=== PATIENT | female | born 1960 | race Caucasian/White ===

== ENCOUNTER 2019-06-15 17:05 | Emergency (ER) | payer MEDICARE ==
[~2019-06-15] VITALS: Ht 170.2 cm; Wt 151.6 kg
[~2019-06-15 17:05] MED LIST: ASPI-630 PO; ATOR40TA PO; CLOP75TA57 PO; CYCL-331 PO; DOCU100C28 PO; DULO60CA6 PO; FURO-68 PO; HYDR-2155 PO; INSU100I27 SQ; INSU100I9 SQ; LIRA0.6P2 SQ; LISI-379 PO; LORA10CA PO; METF1000 PO; MULT-196 PO; NITR0.4T24 PO; PANT20TA58 PO; PROAIR RESPICL90 MCG INH; [UNRECOGNIZED DRUG - CODE] PO; [UNRECOGNIZED DRUG - CODE] PO
[2019-06-15 17:18] VITALS: BP 191/97
[2019-06-15 17:27] LABS: BASO # 0.1 x10^3/uL (0.0-0.2); BASO % 1 % (0-3); EOS # 0.1 x10^3/uL (0.0-0.7); EOS % 1 % (0-3); HEMATOCRIT 41.2 % (36.0-47.0); HEMOGLOBIN 13.8 g/dL (12.0-15.5); LYMPH # 1.6 x10^3/uL (1.0-4.8); LYMPH % 15 % (24-48); MEAN CORPUSCULAR HEMOGLOBIN 30 pg (25-35); MEAN CORPUSCULAR HGB CONC 34 g/dL (31-37); MEAN CORPUSCULAR VOLUME 91 fL (79-100); MONO # 0.9 x10^3/uL (0.0-1.1); MONO % 8 % (0-9); NEUT % 75 % (31-73); PLATELET COUNT 345 x10^3/uL (140-400); RED BLOOD COUNT 4.54 x10^6/uL (3.50-5.40); WHITE BLOOD COUNT 10.6 x10^3/uL (4.0-11.0)
--- NOTE | 2019-06-15 17:38 | PHYS DOC ---
Past History Past Medical History: CAD, COPD, GERD, High Cholesterol, Heart Disease, Hypertension, OH, UTI Past Surgical History: Other Additional Past Surgical Histo: stents Alcohol Use: None Drug Use: None Adult General Chief Complaint Chief Complaint: BLOOD SUGAR PROBLEM HPI HPI Patient is a 58-year-old female who presents with report of hypoglycemia. Patient indicates that her fianc had given her her insulin and accidentally had given her 60 units of her short acting insulin instead of the long-acting insulin. She usually gets only 10 units of short-acting insulin. Patient denies any chest pain or shortness of breath. She indicates that she is feeling better at this time.[] Review of Systems Review of Systems Constitutional: Denies fever or chills [] Respiratory: Denies cough or shortness of breath [] Cardiovascular: No additional information not addressed in HPI [] GI: Denies abdominal pain, nausea, vomiting or diarrhea [] Integument: Denies rash or skin lesions [] Neurologic: Denies headache, focal weakness or sensory changes [] All other systems were reviewed and found to be within normal limits, except as documented in this note. Allergies Allergies Allergies Coded Allergies Type Severity Reaction Last Updated Verified fluconazole Allergy Intermediate 08/26/15 Yes Physical Exam Physical Exam Constitutional: Well developed, well nourished, no acute distress, non-toxic appearance. [] HENT: Normocephalic, atraumatic, bilateral external ears normal, oropharynx moist, no oral exudates, nose normal. [] Eyes: PERRLA, EOMI, conjunctiva normal, no discharge. [] Neck: Normal range of motion, no tenderness, supple. [] Cardiovascular: Regular rate and rhythm[] Lungs & Thorax: Bilateral breath sounds clear to auscultation [] Abdomen: Bowel sounds normal, soft, no tenderness. [] Skin: Warm, dry, no erythema, no rash. [] Extremities: No tenderness, no cyanosis, no clubbing, ROM intact. [] Neurologic: Alert and oriented X 3, no focal deficits noted. [] Current Patient Data Vital Signs Vital Signs Date Time Temp Pulse Resp B/P (MAP) Pulse Ox O2 Delivery O2 Flow Rate FiO2 06/15/19 17:18 98.2 94 18 191/97 (128) 100 Room Air Lab Results Laboratory Tests Test 06/15/19 17:08 White Blood Count 10.6 x10^3/uL (4.0-11.0) Red Blood Count 4.54 x10^6/uL (3.50-5.40) Hemoglobin 13.8 g/dL (12.0-15.5) Hematocrit 41.2 % (36.0-47.0) Mean Corpuscular Volume 91 fL (79-100) Mean Corpuscular Hemoglobin 30 pg (25-35) Mean Corpuscular Hemoglobin Concent 34 g/dL (31-37) Red Cell Distribution Width 13.0 % (11.5-14.5) Platelet Count 345 x10^3/uL (140-400) Neutrophils (%) (Auto) 75 % (31-73) H Lymphocytes (%) (Auto) 15 % (24-48) L Monocytes (%) (Auto) 8 % (0-9) Eosinophils (%) (Auto) 1 % (0-3) Basophils (%) (Auto) 1 % (0-3) Neutrophils # (Auto) 8.0 x10^3uL (1.8-7.7) H Lymphocytes # (Auto) 1.6 x10^3/uL (1.0-4.8) Monocytes # (Auto) 0.9 x10^3/uL (0.0-1.1) Eosinophils # (Auto) 0.1 x10^3/uL (0.0-0.7) Basophils # (Auto) 0.1 x10^3/uL (0.0-0.2) EKG EKG [] Radiology/Procedures Radiology/Procedures [] Course & Med Decision Making Course & Med Decision Making Pertinent Labs and Imaging studies reviewed. (See chart for details) [] Dragon Disclaimer Dragon Disclaimer This electronic medical record was generated, in whole or in part, using a voice recognition dictation system. Departure Departure: Impression: Primary Impression: Hypoglycemia Disposition: 01 HOME, SELF-CARE Condition: STABLE Referrals: LOLY DAI (PCP) Patient Instructions: Hypoglycemia (Low Blood Sugar) SHERITA ÁLVAREZ Jr. DO Jun 15, 2019 17:38
[2019-06-15 17:48] LABS: CALCIUM 9.4 mg/dL (8.5-10.1); CREATININE 1.2 mg/dL (0.6-1.0); GFR 46.1; POTASSIUM 3.6 mmol/L (3.5-5.1)
[2019-06-15 17:53] LABS: ALBUMIN 3.1 g/dL (3.4-5.0); ALBUMIN/GLOBULIN RATIO 0.8 (1.0-1.7); TOTAL BILIRUBIN 0.1 mg/dL (0.2-1.0)
== END 2019-06-15 18:33 | disposition home or self-care (01) ==
LOC: ER 17:05
DX: E16.2 Hypoglycemia, unspecified (principal); I25.10 Atherosclerotic heart disease of native coronary artery without angina pectoris; J44.9 Chronic obstructive pulmonary disease, unspecified; K21.9 Gastro-esophageal reflux disease without esophagitis; E78.00 Pure hypercholesterolemia, unspecified; I11.9 Hypertensive heart disease without heart failure; I25.2 Old myocardial infarction; Z87.440 Personal history of urinary (tract) infections; Z88.8 Allergy status to other drugs, medicaments and biological substances
CPT/HCPCS: 36415; 80053; 82947; 85025; 85610; 99283

== ENCOUNTER 2019-12-11 14:49 | Observation (INO) | payer MEDICARE ==
[~2019-12-11] VITALS: Ht 170.2 cm; Wt 147.4 kg
--- NOTE | 2019-12-11 15:15 | RAD ---
Study: CR CHEST PA LATERAL Indication: Chest pain. Comparison: None. Findings: The cardiomediastinal silhouette is within normal limits for size. Atherosclerotic calcifications at the aortic arch. Unremarkable kristal. No pneumothorax, lobar consolidation or layering effusion. Possible hydroxyapatite deposition adjacent to the left greater tuberosity. Cholecystectomy clips. Impression: No acute radiographic abnormality of the chest. Electronically signed by: RAYA LOYA MD (12/11/2019 3:12 PM) [id number]
[2019-12-11 15:39] LABS: CALCIUM 9.2 mg/dL (8.5-10.1); CREATININE 1.1 mg/dL (0.6-1.0); GFR 50.8; POTASSIUM 3.9 mmol/L (3.5-5.1)
[2019-12-11 15:44] LABS: BASO % 1 % (0-3); EOS # 0.2 x10^3/uL (0.0-0.7); EOS % 4 % (0-3); HEMATOCRIT 38.5 % (36.0-47.0); HEMOGLOBIN 12.9 g/dL (12.0-15.5); LYMPH # 2.1 x10^3/uL (1.0-4.8); LYMPH % 31 % (24-48); MEAN CORPUSCULAR HEMOGLOBIN 31 pg (25-35); MEAN CORPUSCULAR HGB CONC 34 g/dL (31-37); MEAN CORPUSCULAR VOLUME 92 fL (79-100); MONO # 0.5 x10^3/uL (0.0-1.1); MONO % 8 % (0-9); NEUT # 3.8 x10^3uL (1.8-7.7); NEUT % 57 % (31-73); PLATELET COUNT 306 x10^3/uL (140-400); RED CELL DISTRIBUTION WIDTH 13.3 % (11.5-14.5); WHITE BLOOD COUNT 6.8 x10^3/uL (4.0-11.0)
--- NOTE | 2019-12-11 18:10 | PHYS DOC ---
Past History Past Medical History: Depression, Diabetes, Heart Disease, Hypertension Past Surgical History: Cholecystectomy, Hysterectomy Additional Past Surgical Histo: stents Alcohol Use: None Drug Use: None Adult General Chief Complaint Chief Complaint: CHEST PAIN HPI HPI Patient is a 59-year-old female who presents the emergency room complaining of substernal chest pain that radiates into the back with associated nausea, sweating, shortness of breath. She states it feels exactly like her last heart attack. She states it feels like a pressure squeezing like pain. It has been constant since it started. She denies any URI symptoms, fever, abdominal pain. Review of Systems Review of Systems General: Denies fever, chills, sweats, fatigue Eyes: Denies drainage, blurred vision, eye redness HENT: Denies rhinorrhea, sore throat, earache Respiratory: Denies cough, wheezing reports shortness of breath Cardiac: Denies edema, palpitations.reports chest pain GI: Denies abdominal pain, Nausea, vomiting MSK: Denies back pain, neck pain Skin: Denies rash, jaundice Neuro: Denies headache, dizziness Psychiatric: Denies SI/HI Allergies Allergies Allergies Coded Allergies Type Severity Reaction Last Updated Verified fluconazole Allergy Intermediate 12/11/19 Yes Physical Exam Physical Exam General: Awake, alert, NAD. Well Nourished, well hydrated. Cooperative HEENT: Atraumatic, EOMI, PERRL, airway patent, moist oral mucosa Neck: Supple, trachea midline Respiratory: CTA bilaterally, normal effort, no wheezing/crackles CV: RRR, no murmur, cap refill <2 GI: Soft, nondistended, nontender, no masses MSK: No obvious deformities Skin: Warm, dry, intact Neuro: A&O x3, speech NL, sensory and motor grossly intact, no focal deficits Psych: Normal affect, normal mood, not suicidal or homicidal Current Patient Data Vital Signs Vital Signs Date Time Temp Pulse Resp B/P (MAP) Pulse Ox O2 Delivery O2 Flow Rate FiO2 12/11/19 15:26 87 14 137/81 (99) 93 Room Air 12/11/19 14:52 98.4 Lab Results Laboratory Tests Test 12/11/19 15:15 White Blood Count 6.8 x10^3/uL (4.0-11.0) Red Blood Count 4.20 x10^6/uL (3.50-5.40) Hemoglobin 12.9 g/dL (12.0-15.5) Hematocrit 38.5 % (36.0-47.0) Mean Corpuscular Volume 92 fL (79-100) Mean Corpuscular Hemoglobin 31 pg (25-35) Mean Corpuscular Hemoglobin Concent 34 g/dL (31-37) Red Cell Distribution Width 13.3 % (11.5-14.5) Platelet Count 306 x10^3/uL (140-400) Neutrophils (%) (Auto) 57 % (31-73) Lymphocytes (%) (Auto) 31 % (24-48) Monocytes (%) (Auto) 8 % (0-9) Eosinophils (%) (Auto) 4 % (0-3) H Basophils (%) (Auto) 1 % (0-3) Neutrophils # (Auto) 3.8 x10^3uL (1.8-7.7) Lymphocytes # (Auto) 2.1 x10^3/uL (1.0-4.8) Monocytes # (Auto) 0.5 x10^3/uL (0.0-1.1) Eosinophils # (Auto) 0.2 x10^3/uL (0.0-0.7) Basophils # (Auto) 0.0 x10^3/uL (0.0-0.2) Sodium Level 139 mmol/L (136-145) Potassium Level 3.9 mmol/L (3.5-5.1) Chloride Level 105 mmol/L (98-107) Carbon Dioxide Level 29 mmol/L (21-32) Anion Gap 5 (6-14) L Blood Urea Nitrogen 10 mg/dL (7-20) Creatinine 1.1 mg/dL (0.6-1.0) H Estimated GFR (Cockcroft-Gault) 50.8 Glucose Level 124 mg/dL (70-99) H Calcium Level 9.2 mg/dL (8.5-10.1) Troponin I Quantitative < 0.017 ng/mL (0-0.055) PG-Qci-N-Type Natriuretic Peptide 109 pg/mL (0-124) EKG EKG [] Radiology/Procedures Radiology/Procedures [] Course & Med Decision Making Course & Med Decision Making Pertinent Labs and Imaging studies reviewed. (See chart for details) Patient is a 59 year-old female who presents to the Emergency Room complaining of chest pain with multiple associated symptoms. History is significant for coronary artery disease with last stent a year ago. At this time, given patient's risk factors and story there is concern for possible cardiac pathology. EKG was ordered and shows chronic changes. At this time there is no signs of STEMI, pericarditis, or unstable arrthymia on EKG. Patient has received aspirin today. CBC, BMP, troponin, CXR were ordered to evaluate for causes of chest pain including ACS, anemia, electrolyte abnormalities that can lead to arrhythmias, PTX, pneumonia, pneumomediastinum. Patient does not have any abdominal tenderness that would suggest pancreaititis or cholecystitis and does not need an abdominal work up at this time. Patient's HEART score is 6 placing the patient at moderate risk. Patient will be admitted for cardiac evaluation. Dragon Disclaimer Dragon Disclaimer This electronic medical record was generated, in whole or in part, using a voice recognition dictation system. Departure Departure: Impression: Primary Impression: Chest pain Disposition: ADMITTED INPATIENT Condition: STABLE Referrals: LOLY DAI (PCP) Justification of Admission: Justification of Admission: Justification of Admission Dx: Yes Angina: New-Onset GRAHAM IRELAND MD Dec 11, 2019 18:10
[2019-12-11 19:48] VITALS: BP 162/88
[2019-12-11] MEDS ORDERED: ARMO150T4 PO (21:22)
[2019-12-11] MEDS ORDERED: AMLO10TA8 PO (21:22)
[2019-12-11] MEDS ORDERED: POTA20TA4 PO (21:22)
[2019-12-11] MEDS ORDERED: LOSA50TA86 PO (21:22)
[2019-12-11] MEDS ORDERED: FLUT1DIS3 IH (21:22)
[2019-12-11] MEDS ORDERED: DIPH25TA26 PO (21:22)
[2019-12-11] MEDS ORDERED: NORT25CA3 PO (21:22)
[2019-12-11] MEDS ORDERED: INSU100I17 SQ (21:22)
[2019-12-11] MEDS ORDERED: RIBO100T3 PO (21:22)
[2019-12-11] MEDS ORDERED: SENN1TAB99 PO (21:22)
[2019-12-11] MEDS ORDERED: LINA5TAB4 PO (21:22)
[2019-12-11] MEDS ORDERED: INSU200I4 SQ (21:22)
[2019-12-11] MEDS ORDERED: WHEA1POW5 PO (21:22)
[2019-12-11] MEDS ORDERED: PROC10TA57 PO (21:22)
[2019-12-11] MEDS ORDERED: AMOX1TAB11 PO (21:22)
--- NOTE | 2019-12-11 22:46 | NUR ---
The patient, DAISY SANCHEZ, 59 y/o, F admitted by LOLY STRONG MD, was given written information regarding hospital policies, unit procedures and contact persons. Valuables were checked and noted. PT admitted with unremitting chest pain that started today. PT with no chest pain at time of admission to floor. Reviewed with PT her PMH, PSH, SH, FH and medications. Telephoned Dr. Strong for continuation of medications. Per Dr. Strong, Dr. Reynoso will review in morning rounds with PT. Spoke with boyfriend on PTs phone at time of assessment. Conveyed lab studies thus far negative.
[2019-12-11 22:47] VITALS: BP 170/91
[2019-12-12 06:20] VITALS: BP 162/84
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
[2019-12-12] MEDS ORDERED: metFORMIN 500 MG TABLET PO SCH (09:00)
[2019-12-12] MEDS: INSULIN GLARGINE SYRINGE. SQ SCH (09:00)
[2019-12-12] MEDS: LINAGLIPTIN 5 MG TABLET PO SCH (09:00)
[2019-12-12] MEDS ORDERED: FUROSEMIDE 40 MG TABLET PO PRN (09:15)
--- NOTE | 2019-12-12 09:15 | HP ---
ADMIT DATE: 12/11/2019 ATTENDING PHYSICIAN: Dr. Briseno CHIEF COMPLAINT: Chest pain. HISTORY OF PRESENT ILLNESS: The patient is a 59-year-old female admitted through the ED with substernal chest pain, new onset, radiating to her back with associated nausea, sweating and shortness of breath. She states it felt exactly like her last heart attack. She has a history of coronary artery disease. She had 2 cardiac catheterizations at [facility] in 2019. Each time, she had angioplasty and placement of stents, total of 3 altogether. There is no recent COVID exposure, fevers or chills. She was admitted then for further treatment and evaluation. Initial EKG is nondiagnostic and the first set of enzymes was negative for coronary ischemia. PAST MEDICAL HISTORY: Significant for major depression; morbid obesity; type 2 diabetes, insulin-dependent; coronary artery disease with previous stents; and hypertension. PAST SURGICAL HISTORY: Includes tonsillectomy, cholecystectomy, hysterectomy. SOCIAL HISTORY: She is a nonsmoker, nondrinker. She does not use any wufg-vjr-dcdgzja nonsteroidals and she drinks minimal amount of caffeine. ALLERGIES: FLUCONAZOLE. CURRENT MEDICATIONS: Include the following: She takes insulin regular and Lantus, albuterol, amlodipine, Augmentin, Nuvigil, aspirin, Lipitor, Plavix, Flexeril p.r.n., Cymbalta, fluticasone, Lasix, losartan, Tradjenta, metformin, nitroglycerin, Pamelor, Protonix, potassium, riboflavin, and senna. REVIEW OF SYSTEMS: Significant for the localized chest pain. No recent travel, no exertional symptoms. She denied any palpitations. All other systems reviewed and turned to be negative. PHYSICAL EXAMINATION: GENERAL: When I saw her, this is a pleasant, alert, middle-aged female. INITIAL VITAL SIGNS: Showed a blood pressure 162/84, pulse is 80 and regular, temperature 97.8 degrees Fahrenheit, oxygen saturation 91% on room air. HEENT: Head is without trauma. Pupils are reactive. Sclerae nonicteric. Oropharynx is clear. NECK: Supple, no bruits identified. LUNGS: Good breath sounds. CARDIOVASCULAR: Showed regular heart tones. No gallops. Peripheral pulses are palpable and full. ABDOMEN: Obese, protuberant. No organomegaly. Bowel sounds were hypoactive. EXTREMITIES: Showed no cyanosis. NEUROLOGIC: Focally intact. No deficits. SKIN: Warm and dry. ASSESSMENT: 1. A 59-year-old female with chest pain at rest, whether this is cardiac remains to be seen. She has a known history of coronary artery disease with previous catheterization and stents. 2. Type 2 diabetes mellitus. 3. Hypertension, labile. 4. Morbid obesity. 5. Generalized debilitation. PLAN: 1. Observation status. 2. Serial cardiac enzymes. 3. Cardiology evaluation in the morning. 4. Resume home meds. ROBBIE BRISENO MD DR: MATTHEW/priya JOB#: [id number] / [id number] LOLY Mullen MD
[2019-12-12] MEDS: ATORVASTATIN CALCIUM 20 MG TABLET PO SCH (09:48)
[2019-12-12] MEDS: PANTOPRAZOLE 40 MG TABLET. PO SCH ×2 (09:48→21:25)
[2019-12-12] MEDS: INSULIN LISPRO 300 UNITS/3 ML VIAL. SQ SCH ×3 (09:54→17:08)
[2019-12-12] MEDS ORDERED: PROCHLORPERAZINE 5 MG TABLET. PO PRN (10:45)
[2019-12-12 10:54] VITALS: BP 137/72
[2019-12-12] MEDS: NORTRIPTYLINE 25 MG CAPSULE PO SCH (11:00)
[2019-12-12] MEDS ORDERED: INSULIN LISPRO 300 UNITS/3 ML VIAL. SQ ONE (11:45)
[2019-12-12] MEDS: ALBUTEROL SULFATE 2.5 MG/3 ML NEBU. NEB SCH ×3 (11:45→21:47)
[2019-12-12] MEDS ORDERED: MORPHINE SULFATE 4 MG/ML DISP.SYRIN. IV PRN (12:00)
[2019-12-12] MEDS: POTASSIUM CHLORIDE 20 MEQ TABLET.ER. PO SCH (12:06)
[2019-12-12] MEDS: SENNOSIDES/DOCUSATE 8.6/50MG TABLET. PO SCH ×2 (12:06→21:25)
[2019-12-12] MEDS: DULoxetine HCL 60 MG CAPSULE.DR PO SCH (12:06)
--- NOTE | 2019-12-12 12:06 | EKG ---
[address] [address] Test Date: 2019-12-12 Test Time: 12:03:06 Pat Name: DAISY SANCHEZ Department: Room: 121 A Gender: F Tax Services Intern: : 1960 Requested By: ROBBIE BRISENO Order Number: [id number] Reading MD: Measurements Intervals [place] Rate: 99 P: 28 TX: 156 QRS: -14 QRSD: 76 T: 43 QT: 328 QTc: 426 Interpretive Statements SINUS RHYTHM LEFTWARD AXIS QRS(T) CONTOUR ABNORMALITY CONSISTENT WITH ANTEROSEPTAL INFARCT AGE UNDETERMINED ABNORMAL ECG RI6.01 No previous ECG available for comparison
[2019-12-12 15:02] VITALS: BP 141/82
[2019-12-12] MEDS: METOPROLOL SUCC 24HR ER 25 MG TAB.ER.24H. PO SCH (17:10)
[2019-12-12 18:28] VITALS: BP 157/66
[2019-12-12] MEDS ORDERED: NON FORMULARY ITEM (Fluticasone/Salmeterol (Advair 250-50 Diskus) 1 PUFF) IH SCH (21:00)
[2019-12-12] MEDS: AMOXICILLIN/K CLAV 875/125MG TABLET. PO SCH (21:25)
[2019-12-12] MEDS: BUDESONIDE 0.5 MG/2 ML NEBU NEB SCH (21:47)
[2019-12-12 23:16] VITALS: BP 164/92
[2019-12-13 05:18] VITALS: BP 193/84
[2019-12-13] MEDS: ALBUTEROL SULFATE 2.5 MG/3 ML NEBU. NEB SCH (05:24)
--- NOTE | 2019-12-13 07:03 | EKG ---
[address] [address] Test Date: 2019-12-11 Test Time: 14:51:55 Pat Name: DAISY SANCHEZ Department: Room: Gender: F Drugless Physician: ROGERIO : 1960 Requested By: GRAHAM IRELAND Order Number: [id number] Reading MD: Measurements Intervals [place] Rate: 92 P: 25 OK: 146 QRS: -15 QRSD: 94 T: 67 QT: 360 QTc: 450 Interpretive Statements SINUS RHYTHM ATRIAL PREMATURE COMPLEX(ES) LEFTWARD AXIS OTHERWISE NORMAL ECG RI6.02 No previous ECG available for comparison
[2019-12-13] MEDS: INSULIN LISPRO 300 UNITS/3 ML VIAL. SQ SCH ×2 (08:00→12:00)
[2019-12-13] MEDS: BUDESONIDE 0.5 MG/2 ML NEBU NEB SCH (08:00)
[2019-12-13] MEDS: INSULIN GLARGINE SYRINGE. SQ SCH (08:00)
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
[2019-12-13] MEDS: AMOXICILLIN/K CLAV 875/125MG TABLET. PO SCH (08:28)
[2019-12-13] MEDS: ATORVASTATIN CALCIUM 20 MG TABLET PO SCH (08:32)
[2019-12-13] MEDS: SENNOSIDES/DOCUSATE 8.6/50MG TABLET. PO SCH (08:32)
[2019-12-13] MEDS: METOPROLOL SUCC 24HR ER 25 MG TAB.ER.24H. PO SCH (08:32)
[2019-12-13] MEDS: POTASSIUM CHLORIDE 20 MEQ TABLET.ER. PO SCH (08:33)
[2019-12-13] MEDS: PANTOPRAZOLE 40 MG TABLET. PO SCH (08:33)
[2019-12-13] MEDS: DULoxetine HCL 60 MG CAPSULE.DR PO SCH (08:33)
[2019-12-13] MEDS: LINAGLIPTIN 5 MG TABLET PO SCH (08:35)
[2019-12-13] MEDS: NORTRIPTYLINE 25 MG CAPSULE PO SCH (08:35)
[2019-12-13] MEDS ORDERED: NON FORMULARY ITEM (Armodafinil (Nuvigil) 1 TAB) PO SCH (09:00)
[2019-12-13] MEDS ORDERED: LOSARTAN 50 MG TABLET. PO SCH (09:00)
[2019-12-13] MEDS ORDERED: ASPIRIN CHEWABLE 81 MG TABLET. PO SCH (09:00)
[2019-12-13] MEDS ORDERED: amLODIPine BESYLATE 10 MG TABLET PO SCH (09:00)
[2019-12-13] MEDS ORDERED: CLOPIDOGREL BISULFATE 75 MG TABLET PO SCH (09:00)
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
[2019-12-13 11:00] VITALS: BP 162/80
--- NOTE | 2019-12-13 13:23 | NUR ---
Patient was discharged to home. Discharge paperwork was reviewed. Patient left the unit via wheelchair with all of her belongings escorted by this RN. transported patient home via private vehicle.
[2019-12-13 19:16] LABS: THYROID STIM HORMONE (TSH) 2.455 uIU/mL (0.358-3.740)
== END 2019-12-13 11:55 | disposition home or self-care (01) ==
LOC: ER 14:49 → INTOOBSV 17:50 → 1 SOUTH 17:50 → ER 18:35
PROVIDERS: ADMIT Internal Medicine; ATTEND Internal Medicine
DX: I13.0 Hypertensive heart and chronic kidney disease with heart failure and stage 1 through stage 4 chronic kidney disease, or unspecified chronic kidney disease (principal); I50.32 Chronic diastolic (congestive) heart failure; N18.9 Chronic kidney disease, unspecified; E11.22 Type 2 diabetes mellitus with diabetic chronic kidney disease; I25.10 Atherosclerotic heart disease of native coronary artery without angina pectoris; J44.9 Chronic obstructive pulmonary disease, unspecified; G47.33 Obstructive sleep apnea (adult) (pediatric); E78.5 Hyperlipidemia, unspecified; E03.9 Hypothyroidism, unspecified; F32.9 Major depressive disorder, single episode, unspecified; E66.01 Morbid (severe) obesity due to excess calories; R53.81 Other malaise; R07.2 Precordial pain; Z79.4 Long term (current) use of insulin; Z90.710 Acquired absence of both cervix and uterus; Z79.02 Long term (current) use of antithrombotics/antiplatelets; Z90.49 Acquired absence of other specified parts of digestive tract; Z79.82 Long term (current) use of aspirin; Z87.11 Personal history of peptic ulcer disease; Z79.01 Long term (current) use of anticoagulants; Z95.5 Presence of coronary angioplasty implant and graft; Z68.43 Body mass index [BMI] 50.0-59.9, adult
CPT/HCPCS: 36415; 71046; 80048; 80061; 82947; 83880; 84443; 84484; 85025; 93005; 94640; 94760; 96374; 97162; 97165; 99285; G0378; J1815; J2270; J7613; G0379

== ENCOUNTER 2020-06-28 19:26 | Emergency (ER) | payer MEDICARE ==
[~2020-06-28] VITALS: Ht 170.2 cm; Wt 137.2 kg
[~2020-06-28 19:26] MED LIST changes: +AMLO-187 PO; +AMOX1TAB11 PO; +ARMO150T4 PO; +DIPH25TA26 PO; +FLUT1DIS3 IH; +INSU100I17 SQ; +INSU200I4 SQ; +LINA5TAB4 PO; +LOSA50TA86 PO; +NORT25CA3 PO; +POTA20TA4 PO; +PROC10TA57 PO; +RIBO100T3 PO; +SENN1TAB99 PO; +WHEA1POW5 PO
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
[2020-06-28] MEDS ORDERED: ONDANSETRON PF 4 MG/2 ML VIAL. ONE (20:10)
[2020-06-28] MEDS ORDERED: FAMOTIDINE 20 MG/2 ML VIAL ONE (20:10)
[2020-06-28] MEDS ORDERED: KETOROLAC 30 MG/ML VIAL. ONE (20:10)
[2020-06-28] MEDS ORDERED: cloNIDine TTS-2 1 PATCH PATCH TD ONE ×2 (20:10→20:15)
[2020-06-28] MEDS ORDERED: KETOROLAC 30 MG/ML VIAL. IVP ONE (20:15)
[2020-06-28] MEDS ORDERED: ONDANSETRON PF 4 MG/2 ML VIAL. IVP ONE (20:15)
[2020-06-28] MEDS ORDERED: IV RINGERS SOLUTION,LACTATED 1,000 ML IV SCH (20:15)
[2020-06-28] MEDS ORDERED: FAMOTIDINE 20 MG/2 ML VIAL IVP ONE (20:15)
[2020-06-28 20:20] LABS: BASO % 1 % (0-3); EOS # 0.1 x10^3/uL (0.0-0.7); EOS % 1 % (0-3); HEMATOCRIT 39.1 % (36.0-47.0); HEMOGLOBIN 13.1 g/dL (12.0-15.5); LYMPH # 2.6 x10^3/uL (1.0-4.8); LYMPH % 27 % (24-48); MEAN CORPUSCULAR HEMOGLOBIN 30 pg (25-35); MEAN CORPUSCULAR HGB CONC 34 g/dL (31-37); MEAN CORPUSCULAR VOLUME 89 fL (79-100); MONO # 0.8 x10^3/uL (0.0-1.1); MONO % 8 % (0-9); NEUT # 6.2 x10^3uL (1.8-7.7); NEUT % 64 % (31-73); PLATELET COUNT 341 x10^3/uL (140-400); RED BLOOD COUNT 4.42 x10^6/uL (3.50-5.40); RED CELL DISTRIBUTION WIDTH 13.6 % (11.5-14.5); WHITE BLOOD COUNT 9.7 x10^3/uL (4.0-11.0)
[2020-06-28 20:22] LABS: CALCIUM 9.9 mg/dL (8.5-10.1); CREATININE 1.3 mg/dL (0.6-1.0); GFR 41.9; POTASSIUM 3.9 mmol/L (3.5-5.1)
[2020-06-28 20:26] LABS: BILIRUBIN,URINE NEG (NEG); CLARITY,URINE TURBID; COLOR,URINE YELLOW; GLUCOSE,URINE >=1000 mg/dL (NEG)
[2020-06-28 20:27] LABS: BACTERIA,URINE MANY /HPF (0-FEW); DIRECT BILIRUBIN 0.1 mg/dL (0.0-0.2); NITRITE,URINE POS (NEG); RBC,URINE >40 /HPF (0-2); SQUAMOUS EPITHELIAL CELL,UR OCC /LPF; TOTAL BILIRUBIN 0.2 mg/dL (0.2-1.0); TOTAL PROTEIN 6.7 g/dL (6.4-8.2); UROBILINOGEN,URINE 0.2 mg/dL (0.2 mg/dL); WBC,URINE >40 /HPF (0-4); YEAST,URINE PRESENT /HPF
[2020-06-28 20:32] LABS: BARBITURATES NEG (NEG); BENZODIAZEPINES NEG (NEG); CANNABINOIDS NEG (NEG); COCAINE NEG (NEG); METHADONE NEG (NEG); OPIATES NEG (NEG); PHENCYCLIDINE NEG (NEG)
[2020-06-28 20:34] LABS: AMPHETAMINE/METHAMPHETAMINE NEG (NEG)
[2020-06-28 20:55] LABS: INFLUENZA A PATIENT NEGATIVE (NEGATIVE); INFLUENZA B PATIENT NEGATIVE (NEGATIVE)
[2020-06-28 21:32] VITALS: BP 175/82
[2020-06-28] MEDS ORDERED: cefTRIAXone SODIUM 1 GM VIAL ONE (21:45)
[2020-06-28] MEDS ORDERED: IV NORMAL SALINE 50ML 50 ML ONE (21:45)
--- NOTE | 2020-06-28 22:32 | RAD ---
Acute Abdominal Series: 06/28/2020 8:22 PM Reason for study: Nausea Comparison studies: None. Technique: Frontal view of the chest was obtained along with supine and upright views of the abdomen. Findings: Nonobstructive bowel gas pattern. No air fluid levels or free air. Close cystectomy changes are prese nt. IUD is present. The lungs are clear without acute consolidative opacity. No pleural effusion or pneumothorax. The car diac and mediastinal contours are normal. Visualized osseous structures are intact. IMPRESSION: 1. Nonobstructed bowel gas pattern. 2. No acute cardiopulmonary findings. 3. IUD is present. Electronically signed by: Kerline Morales MD (06/28/2020 10:29 PM) CRISTHIAN
[2020-06-28] MEDS ORDERED: CEPH750C9 PO (23:33)
--- NOTE | 2020-06-29 06:20 | EKG ---
[address] [address] Test Date: 2020-06-28 Test Time: 20:21:33 Pat Name: DAISY SANCHEZ Department: Room: Gender: F Biometrics Instructor: : 1960 Requested By: CHARLOTTE POE Order Number: [id number] Reading MD: Measurements Intervals [place] Rate: 93 P: 26 [place]: 154 QRS: 1 QRSD: 70 T: 59 QT: 340 QTc: 425 Interpretive Statements SINUS RHYTHM QRS(T) CONTOUR ABNORMALITY CONSISTENT WITH ANTEROSEPTAL INFARCT AGE UNDETERMINED ABNORMAL ECG RI6.02 No previous ECG available for comparison
== END 2020-06-28 23:55 | disposition home or self-care (01) ==
LOC: ER 19:29
DX: N39.0 Urinary tract infection, site not specified (principal); Z20.822 Contact with and (suspected) exposure to COVID-19; E11.9 Type 2 diabetes mellitus without complications; I11.9 Hypertensive heart disease without heart failure; G43.909 Migraine, unspecified, not intractable, without status migrainosus; F32.9 Major depressive disorder, single episode, unspecified; F41.9 Anxiety disorder, unspecified; Z90.49 Acquired absence of other specified parts of digestive tract; Z90.710 Acquired absence of both cervix and uterus; Z95.5 Presence of coronary angioplasty implant and graft; Z88.8 Allergy status to other drugs, medicaments and biological substances
CPT/HCPCS: 36415; 74022; 80048; 80076; 80307; 81001; 82550; 83690; 84484; 85025; 85730; 87070; 87086; 87804; 87880; 93005; 96361; 96374; 96375; 99285; C9803; J0696; J1885; J2405; J3490; J7120; U0003; U0005

== ENCOUNTER 2020-08-17 17:01 | Emergency (ER) | payer MEDICARE ==
[~2020-08-17] VITALS: Ht 167.6 cm; Wt 140.0 kg
[~2020-08-17 17:01] MED LIST changes: +CEPH750C9 PO
--- NOTE | 2020-08-17 17:30 | EKG ---
[address] [address] Test Date: 2020-08-17 Test Time: 17:18:17 Pat Name: DAISY SANCHEZ Department: Room: Gender: F Supervisor Dock: JOEY : 1960 Requested By: SHEYLA SIGALA Order Number: [id number] Reading MD: Measurements Intervals [place] Rate: 89 P: 34 [place]: 160 QRS: -14 QRSD: 96 T: 95 QT: 368 QTc: 449 Interpretive Statements SINUS RHYTHM LEFTWARD AXIS QRS(T) CONTOUR ABNORMALITY CONSISTENT WITH SEPTAL INFARCT PROBABLY OLD T ABNORMALITY IN HIGH LATERAL LEADS ABNORMAL ECG RI6.02 No previous ECG available for comparison
[2020-08-17 18:05] LABS: CALCIUM 9.6 mg/dL (8.5-10.1); CREATININE 1.2 mg/dL (0.6-1.0); POTASSIUM 3.5 mmol/L (3.5-5.1)
[2020-08-17 18:11] LABS: ALBUMIN 2.7 g/dL (3.4-5.0); ALBUMIN/GLOBULIN RATIO 0.7 (1.0-1.7); TOTAL BILIRUBIN 0.2 mg/dL (0.2-1.0); TOTAL PROTEIN 6.7 g/dL (6.4-8.2)
[2020-08-17 19:21] LABS: BASO # 0.1 x10^3/uL (0.0-0.2); BASO % 1 % (0-3); EOS # 0.4 x10^3/uL (0.0-0.7); EOS % 7 % (0-3); HEMATOCRIT 35.6 % (36.0-47.0); HEMOGLOBIN 12.1 g/dL (12.0-15.5); LYMPH # 2.1 x10^3/uL (1.0-4.8); LYMPH % 36 % (24-48); MEAN CORPUSCULAR HEMOGLOBIN 30 pg (25-35); MEAN CORPUSCULAR HGB CONC 34 g/dL (31-37); MEAN CORPUSCULAR VOLUME 87 fL (79-100); MONO # 0.5 x10^3/uL (0.0-1.1); MONO % 9 % (0-9); NEUT # 2.7 x10^3uL (1.8-7.7); NEUT % 47 % (31-73); PLATELET COUNT 289 x10^3/uL (140-400); RED BLOOD COUNT 4.09 x10^6/uL (3.50-5.40); RED CELL DISTRIBUTION WIDTH 13.5 % (11.5-14.5); WHITE BLOOD COUNT 5.9 x10^3/uL (4.0-11.0)
[2020-08-17] MEDS ORDERED: CYCLOBENZAPRINE 10 MG TABLET. PO ONE (19:30)
[2020-08-17] MEDS ORDERED: HYDROcodone/APAP 5/325MG 1 TAB TABLET PO ONE (19:30)
[2020-08-17 19:59] LABS: BACTERIA,URINE MANY /HPF (0-FEW); BILIRUBIN,URINE NEG (NEG); CLARITY,URINE CLOUDY; COLOR,URINE PINK; GLUCOSE,URINE 500 mg/dL (NEG); NITRITE,URINE NEG (NEG); SQUAMOUS EPITHELIAL CELL,UR MOD /LPF; UROBILINOGEN,URINE 0.2 mg/dL (0.2 mg/dL); WBC,URINE >40 /HPF (0-4); YEAST,URINE PRESENT /HPF
--- NOTE | 2020-08-17 20:22 | EKG ---
[address] [address] Test Date: 2020-08-17 Test Time: 20:13:40 Pat Name: DAISY SANCHEZ Department: Room: Gender: F Quality Control Director: AUDREY : 1960 Requested By: FELISHA CALHOUN Order Number: [id number] Reading MD: Measurements Intervals [place] Rate: 87 P: 26 [place]: 156 QRS: -6 QRSD: 78 T: 47 QT: 356 QTc: 434 Interpretive Statements SINUS RHYTHM LEFTWARD AXIS T ABNORMALITY IN HIGH LATERAL LEADS ABNORMAL ECG RI6.02 No previous ECG available for comparison
[2020-08-17] MEDS ORDERED: ASPIRIN CHEWABLE 81 MG TABLET. PO ONE (20:45)
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
[2020-08-17 21:27] LABS: ALBUMIN 2.8 g/dL (3.4-5.0); ALK PHOS 198 U/L (46-116); ALT (SGPT) 32 U/L (14-59); AST (SGOT) 20 U/L (15-37); MAGNESIUM 1.7 mg/dL (1.8-2.4); TOTAL BILIRUBIN 0.2 mg/dL (0.2-1.0); TOTAL PROTEIN 6.4 g/dL (6.4-8.2)
[2020-08-17 21:29] LABS: DIRECT BILIRUBIN < 0.1 mg/dL (0.0-0.2)
--- NOTE | 2020-08-17 21:53 | RAD ---
Exam: Chest one view INDICATION: Elevated troponin TECHNIQUE: Frontal view of the chest Comparisons: 12/11/2019 FINDINGS: The cardiomediastinal silhouette and pulmonary vessels are within normal limits. The lung and pleural spaces are clear. IMPRESSION: No acute cardiopulmonary process. Electronically signed by: Benito Harry MD (08/17/2020 9:51 PM) [facility]
[2020-08-17] MEDS ORDERED: CEPHALEXIN 250 MG CAPSULE PO ONE (22:00)
[2020-08-17 23:10] VITALS: BP 154/64
--- NOTE | 2020-08-18 02:12 | EKG ---
[facility] [address] [place] [address] Test Date: 2020-08-17 Test Time: 21:48:17 Pat Name: DAISY SANCHEZ Department: Room: Gender: F Incubator Tender: AUDREY : 1960 Requested By: SHELBIE VELEZ Order Number: [id number] Reading MD: Measurements Intervals [place] Rate: 77 P: -47 TX: 60 QRS: 223 QRSD: 112 T: 99 QT: 390 QTc: 443 Interpretive Statements SUPRAVENTRICULAR RHYTHM ABNORMAL RIGHT SUPERIOR AXIS DEVIATION RIGHT VENTRICULAR HYPERTROPHY QRS(T) CONTOUR ABNORMALITY CONSISTENT WITH ANTERIOR INFARCT CONSISTENT WITH INFERIOR INFARCT POSSIBLY RECENT ST ABNORMALITY, POSSIBLE HIGH LATERAL SUBENDOCARDIAL INJURY RI6.02 Compared to ECG 08/17/2020 21:47:00 Supraventricular rhythm now present
== END 2020-08-17 23:10 | disposition short-term general hospital (02) ==
LOC: ER 17:01
DX: M54.42 Lumbago with sciatica, left side (principal); N39.0 Urinary tract infection, site not specified; I21.4 Non-ST elevation (NSTEMI) myocardial infarction; R77.8 Other specified abnormalities of plasma proteins; B37.9 Candidiasis, unspecified; I10 Essential (primary) hypertension; Z90.49 Acquired absence of other specified parts of digestive tract; Z86.73 Personal history of transient ischemic attack (TIA), and cerebral infarction without residual deficits
CPT/HCPCS: 36415; 71045; 80048; 80053; 80076; 81001; 82553; 83735; 83880; 84484; 85025; 85379; 85610; 85730; 87086; 93005; 99285-25

== ENCOUNTER 2020-08-25 11:01 | Emergency (ER) | payer MEDICARE ==
[~2020-08-25] VITALS: Ht 167.6 cm; Wt 140.0 kg
[2020-08-25] MEDS ORDERED: NALOXONE 2 MG/2 ML DISP.SYRIN. ONE (11:20)
--- NOTE | 2020-08-25 11:20 | PHYS DOC ---
Past History Past Medical History: Heart Disease, Hypertension, Stroke, TIA Past Surgical History: Cholecystectomy, Other Additional Past Surgical Histo: CARDIAC STENTS Alcohol Use: None Drug Use: None General Adult EDM: Chief Complaint: ALTERED MENTAL STATUS HPI: HPI: Patient is a 59-year-old female brought in by EMS for altered mental status. Her called because she was becoming more somnolent with decreased responsiveness. 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 They started to notice altered mental status around 1030. EMS arrival she is sitting in a chair but not responding. Had stents placed at 6 days ago. Is on aspirin and Plavix. History limited by patient's mental status. Blood glucose on scene 166. Review of Systems: Review of Systems: Constitutional: Denies fever or chills Eyes: Denies change in visual acuity HENT: Denies nasal congestion or sore throat Respiratory: Denies cough or shortness of breath Cardiovascular: Denies chest pain or edema GI: Denies abdominal pain, nausea, vomiting, bloody stools or diarrhea : Denies dysuria Musculoskeletal: Denies back pain or joint pain Integument: Denies rash Neurologic: Denies headache, focal weakness or sensory changes Endocrine: Denies polyuria or polydipsia Lymphatic: Denies swollen glands Psychiatric: Denies depression or anxiety Allergies: Allergies: Allergies Coded Allergies Type Severity Reaction Last Updated Verified fluconazole Allergy Intermediate 12/11/19 Yes Physical Exam: PE: Constitutional: Well developed, well nourished, no acute distress, non-toxic appearance. [] HENT: Normocephalic, atraumatic, bilateral external ears normal, oropharynx moist, no oral exudates, nose normal. [] Eyes: PERRLA, EOMI, conjunctiva normal, no discharge. [] Neck: Normal range of motion, no tenderness, supple, no stridor. [] Cardiovascular:Heart rate regular rhythm, no murmur [] Lungs & Thorax: Bilateral breath sounds clear to auscultation [] Abdomen: Bowel sounds normal, soft, no tenderness, no masses, no pulsatile masses. [] Skin: Warm, dry, no erythema, no rash. [] Back: No tenderness, no CVA tenderness. [] Extremities: No tenderness, no cyanosis, no clubbing, ROM intact, no edema. [] Neurologic: Alert and oriented X 3, normal motor function, normal sensory function, no focal deficits noted. [] Psychologic: Affect normal, judgement normal, mood normal. [] EKG: EKG: Sinus rhythm, heart 60 bpm, normal axis, no ST elevation or depression, no ectopy. T-wave inversion in V1 [] Radiology/Procedures: Radiology/Procedures: STUDY: CT head without contrast INDICATION: Altered mental status. COMPARISON: None. TECHNIQUE: Axial CT imaging through the head without the use of intravenous contrast. Sagittal and coronal reformats were obtained. One or more of the following individualized dose reduction techniques were utilized for this examination: 1. Automated exposure control 2. Adjustment of the mA and/or kV according to patient size 3. Use of iterative reconstruction technique. FINDINGS: No acute intracranial hemorrhage. Euceda-white matter differentiation is maintained and the deep euceda nuclei well delineated. No localized mass effect, midline shift or hydrocephalus. No scalp or orbital abnormality. Intact calvarium. Carotid siphon calcific atherosclerosis. Normally aerated mastoid air cells and paranasal sinuses. IMPRESSION: No acute intracranial hemorrhage or CT evidence for an acute cortical infarction. [] Heart Score: C/O Chest Pain: N/A Risk Factors: Risk Factors: DM, Current or recent (<one month) smoker, HTN, HLP, family history of CAD, obesity. Risk Scores: Score 0 - 3: 2.5% MACE over next 6 weeks - Discharge Home Score 4 - 6: 20.3% MACE over next 6 weeks - Admit for Clinical Observation Score 7 - 10: 72.7% MACE over next 6 weeks - Early Invasive Strategies Course & Med Decision Making: Course & Med Decision Making Pertinent Labs and Imaging studies reviewed. (See chart for details) Patient's heart rate and blood pressure are lower than previous visit. Per chart review her previous heart rate was around 80 and systolic blood pressure ranged from 1 40-1 50s. Discussed with niece it is possible she might have taken extra dose of her blood pressure medications. Patient's creatinine 1.5 up from 1.2 a week ago. Patient's blood pressure responding to fluids. Will also cover for possible sepsis and cover for hospital-acquired source due to patient's altered mental status and hypothermia. Consulted to [facility] per patient's family request for further care. Accepted by Dr. Frye [] Ariel Disclaimer: Ariel Disclaimer: This electronic medical record was generated, in whole or in part, using a voice recognition dictation system. Departure Departure: Impression: Primary Impression: Altered mental state Disposition: 02 SHORT TERM HOSPITAL Condition: STABLE Referrals: LOLY DAI (PCP) FARSHAD WOLFF MD August 25, 2020 11:20
--- NOTE | 2020-08-25 11:22 | RAD ---
STUDY: CT head without contrast INDICATION: Altered mental status. COMPARISON: None. TECHNIQUE: Axial CT imaging through the head without the use of intravenous contrast. Sagittal and co stepan reformats were obtained. One or more of the following individualized dose reduction techniques were utilized for this examinat ion: 1. Automated exposure control 2. Adjustment of the mA and/or kV according to patient size 3. Use of iterative reconstruction technique. FINDINGS: No acute intracranial hemorrhage. Euceda-white matter differentiation is maintained and the deep euceda n uclei well delineated. No localized mass effect, midline shift or hydrocephalus. No scalp or orbital abnormality. Intact calvarium. Carotid siphon calcific atherosclerosis. Normally aerated mastoid air cells and paranasal sinuses. IMPRESSION: No acute intracranial hemorrhage or CT evidence for an acute cortical infarction. FOR INTERNAL CODING PURPOSES Critical result: Findings discussed with Dr. Cornell on 08/25/2020 at 1117 hours. RESULT CODE: (C) Electronically signed by: RAYA LOYA MD (08/25/2020 11:20 AM) [facility]
[2020-08-25] MEDS ORDERED: NALOXONE 0.4 MG/ML VIAL. ONE (11:23)
[2020-08-25] MEDS ORDERED: NALOXONE 2 MG/2 ML DISP.SYRIN. NS ONE (11:30)
[2020-08-25] MEDS ORDERED: NALOXONE 0.4 MG/ML VIAL. IV ONE (11:30)
[2020-08-25 11:45] LABS: BASO # 0.1 x10^3/uL (0.0-0.2); BASO % 1 % (0-3); EOS # 0.4 x10^3/uL (0.0-0.7); EOS % 5 % (0-3); HEMATOCRIT 33.7 % (36.0-47.0); HEMOGLOBIN 11.1 g/dL (12.0-15.5); LYMPH # 2.9 x10^3/uL (1.0-4.8); LYMPH % 36 % (24-48); MEAN CORPUSCULAR HEMOGLOBIN 29 pg (25-35); MEAN CORPUSCULAR HGB CONC 33 g/dL (31-37); MEAN CORPUSCULAR VOLUME 88 fL (79-100); MONO # 0.8 x10^3/uL (0.0-1.1); MONO % 10 % (0-9); NEUT % 49 % (31-73); PLATELET COUNT 364 x10^3/uL (140-400); RED BLOOD COUNT 3.82 x10^6/uL (3.50-5.40); WHITE BLOOD COUNT 8.2 x10^3/uL (4.0-11.0)
[2020-08-25] MEDS ORDERED: IV NORMAL SALINE 500ML 500 ML IV ONE (11:45)
[2020-08-25] MEDS ORDERED: IV NORMAL SALINE 1,000ML 1,000 ML IV ONE ×2 (11:45→13:30)
[2020-08-25 11:52] LABS: CREATININE 1.5 mg/dL (0.6-1.0); GFR 35.5; POTASSIUM 4.3 mmol/L (3.5-5.1)
[2020-08-25 12:03] LABS: ALBUMIN 2.7 g/dL (3.4-5.0); ALBUMIN/GLOBULIN RATIO 0.8 (1.0-1.7); MAGNESIUM 1.7 mg/dL (1.8-2.4); PHOSPHORUS 5.1 mg/dL (2.6-4.7); TOTAL BILIRUBIN 0.1 mg/dL (0.2-1.0); TOTAL PROTEIN 6.1 g/dL (6.4-8.2)
[2020-08-25 12:13] LABS: BARBITURATES NEG (NEG); BENZODIAZEPINES NEG (NEG); CANNABINOIDS NEG (NEG); COCAINE NEG (NEG); METHADONE NEG (NEG); OPIATES NEG (NEG); PHENCYCLIDINE NEG (NEG)
[2020-08-25 12:14] LABS: AMPHETAMINE/METHAMPHETAMINE NEG (NEG)
[2020-08-25 12:15] LABS: ACETAMIN < 2 mcg/mL (10-30)
[2020-08-25 12:23] LABS: BACTERIA,URINE 0 /HPF (0-FEW); BILIRUBIN,URINE NEG (NEG); CLARITY,URINE HAZY; COLOR,URINE YELLOW; GLUCOSE,URINE >=1000 mg/dL (NEG); NITRITE,URINE NEG (NEG); RBC,URINE 0 /HPF (0-2); SQUAMOUS EPITHELIAL CELL,UR FEW /LPF; UROBILINOGEN,URINE 0.2 mg/dL (0.2 mg/dL)
[2020-08-25] MEDS ORDERED: VANCOMYCIN 2 GM in IV NORMAL SALINE 500ML 500 ML IV ONE (13:30)
[2020-08-25] MEDS ORDERED: PIPERACILLIN/TAZOBACTAM 3.375 GM in IV NORMAL SALINE 50ML 50 ML IV ONE (13:30)
[2020-08-25] MEDS ORDERED: PIPERACILLIN/TAZOBACTAM 3.375 GM VIAL IV ONE (13:35)
[2020-08-25] MEDS ORDERED: IV NORMAL SALINE 50ML 50 ML ONE (13:35)
[2020-08-25 16:09] VITALS: BP 133/69
--- NOTE | 2020-08-25 18:41 | EKG ---
[address] [address] Test Date: 2020-08-25 Test Time: 11:57:22 Pat Name: DAISY SANCHEZ Department: Room: Gender: F Senior Technical Business Analyst: [place] : 1960 Requested By: FARSHAD WOLFF Order Number: [id number] Reading MD: Harinder Muñoz Measurements Intervals [place] Rate: 61 P: 27 WI: 174 QRS: 9 QRSD: 94 T: 125 QT: 426 QTc: 430 Interpretive Statements SINUS RHYTHM T ABNORMALITY IN HIGH LATERAL LEADS ABNORMAL ECG Electronically Signed On 08-26-2020 15:03:18 CDT by Harinder Muñoz
== END 2020-08-25 16:27 | disposition short-term general hospital (02) ==
LOC: ER 11:01
DX: R41.82 Altered mental status, unspecified (principal); R51.9 Headache, unspecified; I11.9 Hypertensive heart disease without heart failure; Z86.73 Personal history of transient ischemic attack (TIA), and cerebral infarction without residual deficits; Z88.8 Allergy status to other drugs, medicaments and biological substances
CPT/HCPCS: 36415; 70450; 80053; 80307; 80329; 81001; 82140; 82803; 83605; 83735; 83880; 84100; 84443; 84484; 85025; 85610; 87040; 87086; 87205; 93005; 96361; 96365; 96366; 96367; 96375; 99285; G0480; J2310; J2543; J3370; J7030; J7040

== ENCOUNTER → 2021-05-08 | Outpatient (CLI) | payer MEDICARE, MEDICAID ==
[~2021-05-08] MED LIST changes: +ARMO200T PO; +CARV25TA2 PO; -CYCL-331 PO; +CYCL10TA19 PO; -DULO60CA6 PO; +DULO60CA7 PO; +DULO60CA98 PO; +EZET10TA20 PO; +GABA-586 PO; +HYDR-2759 PO; +LIRA0.6P SQ; +POTA-121 PO; -POTA20TA4 PO
[2021-05-08 12:41] LABS: CREATININE 1.5 mg/dL (0.6-1.0); GFR 35.4; POTASSIUM 3.9 mmol/L (3.5-5.1)
== END ==
LOC: LAB 12:09
PROVIDERS: ATTEND Family Medicine
DX: Z79.899 Other long term (current) drug therapy (principal)
CPT/HCPCS: 36415; 80048